=== PATIENT | female | born 2000 | race Caucasian/White ===

== ENCOUNTER 2022-06-17 12:54 | Emergency (ER) | payer SELFPAY ==
[~2022-06-17] VITALS: Ht 167.6 cm; Wt 73.0 kg
[2022-06-17 12:59] VITALS: BP 132/78
== END 2022-06-17 14:40 | disposition left against medical advice (07) ==
LOC: ER 14:10
DX: Z53.21 Procedure and treatment not carried out due to patient leaving prior to being seen by health care provider (principal)